=== PATIENT | male | born 1965 | race Caucasian/White ===

== ENCOUNTER 2019-12-28 14:48 | Outpatient (CLI) | payer MEDICAID ==
--- NOTE | 2019-12-29 17:45 | Consultation ---
DATE OF CONSULTATION: 12/28/2019 CONSULTING PHYSICIAN: Brown Rosenberg M.D. CHIEF COMPLAINT: Referral for screening colonoscopy. PAST MEDICAL HISTORY: 1. Hypertension. 2. Asthma. 3. Chronic back pain. 4. Gout. 5. Diabetes. 6. COPD. PAST SURGICAL HISTORY: Back surgery. MEDICATIONS: Please see medication reconciliation list. ALLERGIES: To penicillin. FAMILY HISTORY: No family history of GI malignancies. SOCIAL HISTORY: The patient drinks alcohol and also still smokes. REVIEW OF SYSTEMS: A 10-point review of systems was performed and pertinent positives in HPI. PHYSICAL EXAMINATION: GENERAL: A well-developed male, in no acute distress. VITAL SIGNS: Stable. Afebrile. HEENT: Normocephalic, atraumatic. Sclerae anicteric. NECK: Supple. No evidence of obvious lymphadenopathy. CARDIOVASCULAR: Regular rate and rhythm. Plus S1, S2. LUNGS: Clear to auscultation bilaterally. ABDOMEN: Positive bowel sounds. Soft and nontender. No rebound. No guarding. No peritoneal sign. EXTREMITIES: No cyanosis. No clubbing. No edema. ASSESSMENT AND PLAN: A 54-year-old male, referred for screening colonoscopy. The patient was given instruction for colonoscopy. Risks and benefits of procedure were explained to him. He was given the prep and pending authorization to schedule. Brown Rosenberg M.D. DR: KATELYN JOB#: [id number] CC:
== END 2019-12-28 16:26 | disposition home or self-care (01) ==
LOC: PAN 14:48
DX: I10 Essential (primary) hypertension (principal); E11.9 Type 2 diabetes mellitus without complications; J44.9 Chronic obstructive pulmonary disease, unspecified
CPT/HCPCS: G0463